=== PATIENT | male | born 1960 | race Caucasian/White ===

== ENCOUNTER 2017-10-10 08:41 | Emergency (ER) | payer OTHER ==
[~2017-10-10] VITALS: Ht 170.2 cm; Wt 78.0 kg
[~2017-10-10 08:41] MED LIST: ALLOPURINOL300 M1 PO; COLACE100 M1 PO; COUMADIN5 M2 PO; FLEXERIL10 MG PO; IRON SUPPLEMEN325 MG PO; K-DUR 20MEQ TA20 MEQ PO; LASIX20 MG PO; MIRALAX17 G1 PO; MOXIFLOXACIN H400 M1 PO; NORCO 325 MG-51 TAB PO; OTEZLA30 MG PO; PERCOCET 325 MG1 TA2 PO; PERCOCET 5-3251 EACH PO; PREDNISONE5 MG PO; PRINIVIL20 M1 PO
[2017-10-10] MEDS ORDERED: FENOFIBRATE145 M1 PO (09:06)
--- NOTE | 2017-10-10 09:09 | ED GI/GU/ABDOMINAL COMPLAINT ---
History of Present Illness General Chief Complaint: Abdominal Pain/Flank Pain Stated Complaint: ABD PAIN Source: patient Exam Limitations: no limitations Vital Signs & Intake/Output Vital Signs & Intake/Output Vital Signs Date Time Temp Pulse Resp B/P B/P Pulse O2 O2 Flow FiO2 Mean Ox Delivery Rate 10/10 1438 84 18 160/84 96 Room Air Room Air 10/10 1315 98.0 72 18 148/92 05/ 1312 98.0 72 18 148/92 97 Room Air 10/10 1115 98.7 70 20 168/90 05/ 1115 98.7 70 20 168/90 96 Room Air 10/10 1034 98.4 74 20 160/90 96 Room Air 10/10 0915 98.0 85 20 170/100 05/ 0913 98.0 85 20 170/100 97 Room Air 10/10 0844 98.2 90 15 172/112 97 Room Air Room Air Allergies Coded Allergies: No Known Allergies (10/10/17) Reconcile Medications Allopurinol 300 MG TABLET 1 TAB PO DAILY GOUT (Reported) Fenofibrate Nanocrystallized (Fenofibrate) 145 MG TABLET 1 TAB PO DAILY TRIGLYCERIDES (Reported) Lisinopril (Prinivil) 20 MG TABLET 1 TAB PO DAILY BP (Reported) Omeprazole 40 MG CAPSULE.DR 1 CAP PO DAILY reflux Ondansetron (Zofran Odt) 4 MG TAB.RAPDIS 1 TAB SL TID NAUSEA Ondansetron (Zofran Odt) 4 MG TAB.RAPDIS 1 TAB SL TID nausea Promethazine HCl 25 MG TABLET 1 TAB PO Q6P PRN NAUSEA Promethazine HCl 25 MG TABLET 1 TAB PO Q6P PRN nausea Triage Note: PT TO ED FOR C/C OF DIFFUSE ABD PAIN, NAUSEA, VOMITING AND DIARRHEA. HAS BEEN INTERMITTENT X MONTHS, BUT WORSENING OVER THE LAST 4 DAYS. PT IS A DAILY DRINKER 6-10 BEERS AND A COUPLE OF NIPS A DAY. LAST DRINK 0600. PT DENIES SHARRI BLOOD IN STOOL, BUT DID HAVE ONE EPISODE OF COFFEE GROUND EMESIS A COUPLE OF DAYS AGO. PT HYPERTENSIVE IN TRIAGE. Triage Nurses Notes Reviewed? yes Onset: Abrupt Duration: day(s):, constant, continues in ED Timing: recent history Quality/Severity: moderate Location: generalized abdomen Radiation: no radiation Prior Abdominal Problems: none HPI: 56-year-old male with a history of heavy alcohol use daily for the last 40 years comes into the emergency room with complaints of nausea vomiting general abdominal pain. He reports that over last 2 years his abdomen has become very enlarged. He denies any fever. Denies any blood in his stool. He has chronic loose bowel movements. He reports that for the past 4 days he has not really keep anything down. He drinks about 6-10 beers a night. He reports he had a beer this morning before coming in. Denies any history of liver disease that he is aware of. Denies any prior abdominal surgeries. (Kaveh Sandoval) Past History Travel History Traveled to [place] past 21 day No Medical History Any Pertinent Medical History? see below for history Neurological: NONE EENT: NONE Cardiovascular: hypertension Respiratory: ASP PNA Gastrointestinal: SLOW GASTRIC EMPTYING Hepatic: NONE Renal: NONE Musculoskeletal: gout, osteoarthritis, psoariatic arthritis Psychiatric: NONE Endocrine: NONE Blood Disorders: NONE Cancer(s): NONE REINFORCING STEEL PLACER/Reproductive: NONE History of MRSA: No History of VRE: No History of CDIFF: No Surgical History Surgical History: RIGHT HIP SX LEFT HIP REPLACEMENT Psychosocial History Who do you live with Spouse What is your primary language Eritrean Tobacco Use: Quit >30 days ago ETOH Use: alcoholic Illicit Drug Use: marijuana Family History Family History, If Any: FATHER Relation not specified for: FH: hypertension Hx Contributory? No (Kaveh Sandoval) Review of Systems Review of Systems Constitutional: Reports: no symptoms. EENTM: Reports: no symptoms. Respiratory: Reports: no symptoms. Cardiovascular: Reports: no symptoms. GI: Reports: see HPI. Genitourinary: Reports: no symptoms. Musculoskeletal: Reports: no symptoms. Skin: Reports: no symptoms. Neurological/Psychological: Reports: no symptoms. Hematologic/Endocrine: Reports: no symptoms. Immunologic/Allergic: Reports: no symptoms. All Other Systems: Reviewed and Negative (Kaveh Sandoval) Physical Exam Physical Exam General Appearance: alert, awake Head: atraumatic Eyes: Bilateral: normal appearance. Ears, Nose, Throat, Mouth: hearing grossly normal, moist mucous membrane Neck: normal inspection Respiratory: normal breath sounds, no respiratory distress Cardiovascular: regular rate/rhythm Gastrointestinal: soft, distention, hepatomegaly Back: normal inspection Extremities: normal range of motion Neurologic/Psych: awake, alert, oriented x 3 Skin: intact Core Measures ACS in differential dx? Yes Sepsis Present: No Sepsis Focused Exam Completed? No (Clyde RAMOS,Kaveh) Progress Differential Diagnosis: appendicitis, bowel obstruction, colon cancer, cholecystitis, epididymitis, pancreatitis, Liver cirrhosis, alcoholic hepatitis, Plan of Care: Orders Procedure Date/time Status Clear Liquid Diet 10/10 D Active LACTIC ACID 10/10 1200 Complete ETHANOL 10/10 09 Complete CIWA 10/10 901 Active URINALYSIS 10/10 899 Complete TROPONIN LEVEL 10/10 899 Complete PARTIAL THROMBOPLASTIN TIME 10/10 899 Complete PROTHROMBIN TIME 10/10 899 Complete LIPASE 10/10 899 Complete LACTIC ACID 10/10 899 Complete COMPREHENSIVE METABOLIC PANEL 10/10 899 Complete CBC WITHOUT DIFFERENTIAL 10/10 899 Complete AMYLASE 10/10 899 Complete EKG 10/10 899 Active Laboratory Tests 10/10/17 1215: Lactic Acid 3.0 H 10/10/17 1022: Urine Color YEL, Urine Clarity CLEAR, Urine pH 6.0, Ur Specific [place] <= 1.005 , Urine Protein NEG, Urine Ketones NEG, Urine Nitrite NEG, Urine Bilirubin NEG, Urine Urobilinogen 0.2, Ur Leukocyte Esterase NEG, Ur Microscopic EXAM NOT REQUIRED, Urine Hemoglobin NEG, Urine Glucose NEG 10/10/17 0916: Anion Gap 18 H, Estimated GFR > 60, BUN/Creatinine Ratio 17.5, Glucose 146 H, Lactic Acid 3.4 H, Calcium 8.3 L, Total Bilirubin 1.1, AST 136 H, ALT 48, Alkaline Phosphatase 53, Troponin I < 0.01, Total Protein 7.4, Albumin 4.1, Globulin 3.3, Albumin/Globulin Ratio 1.2, Amylase 44, Lipase 202, PT 13.2 H, INR 1.21 H, APTT 31, CBC w Diff NO MAN DIFF REQ, RBC 4.26 L, MCV 96.1 H, MCH 33.3 H, MCHC 34.6, RDW 12.0, MPV 6.8 L, Gran % 53.4, Lymphocytes % 31.3, Monocytes % 14.6 H, Eosinophils % 0.3, Basophils % 0.4, Absolute Granulocytes 3.0, Absolute Lymphocytes 1.8, Absolute Monocytes 0.8 H, Absolute Eosinophils 0 , Absolute Basophils 0, Serum Alcohol 232.0 10/10/17 0901: Serum Alcohol Cancelled Diagnostic Imaging: Viewed by Me: CT Scan. Discussed w/RAD: CT Scan. Radiology Impression: PATIENT: LARA RODRIGUEZ PRESENT AGE: 56 PATIENT ACCOUNT NO: [id number] : 62 LOCATION: [facility] ORDERING PHYSICIAN: Kaveh RAMOS SERVICE DATE: 10/10/17 EXAM TYPE : CAT - CT ABD & PELVIS W IV CONTRAST EXAMINATION: CT ABDOMEN AND PELVIS WITH CONTRAST CLINICAL INFORMATION: Hepatomegaly. COMPARISON: CT chest 06/09/2015. TECHNIQUE: Multidetector volumetric imaging was performed of the abdomen and pelvis following IV administration of 95 mL of Optiray 320 intravenous contrast. Sagittal and coronal reformatted images were obtained on the technologist's workstation. DLP: 384.70 mGy-cm FINDINGS: LUNG BASES: The visualized lung bases are unremarkable. No suspicious lung masses are seen. No pleural effusions are present. A hiatal hernia is present. LIVER, GALLBLADDER, AND BILIARY TREE: The liver is enlarged measuring at least 21 cm in greatest length. I suspect that there is probably fatty infiltration of the liver although the CT scans were done only with contrast. No focal hepatic lesion or biliary ductal dilatation is present. The gallbladder is unremarkable with no evidence of radiopaque gallstones, gallbladder wall thickening, or obvious pericholecystic inflammatory changes. PANCREAS: Unremarkable. SPLEEN: Unremarkable. ADRENAL GLANDS: Unremarkable. KIDNEYS AND URETERS: The kidneys are normal in size, shape, and attenuation. No hydronephrosis, hydroureter, or calculi seen. No perinephric stranding. BLADDER: Unremarkable. GASTROINTESTINAL TRACT: The small and large bowel are unremarkable aside from some mild colonic diverticulosis. There is no evidence of diverticulitis. The appendix is unremarkable. ABDOMINAL WALL: No significant hernia is appreciated. LYMPH NODES: Normal. VASCULAR: Unremarkable. PELVIC VISCERA: The prostate is not enlarged. Prostatic calcification is present. The seminal vesicles appear normal. No free fluid is seen. OSSEOUS STRUCTURES: Left total hip prosthesis is present along with scoliosis convex to the right and degenerative changes in the lower thoracic spine with mild anterior wedging at T11. IMPRESSION: 1. Enlarged, probable fatty liver. 2. Incidental note made of colonic diverticulosis and scoliosis with mild compression fracture of T11 and left hip replacement. DICTATED BY: Scott Ambriz MD DATE/TIME DICTATED:10/10/171046 SINGE WINDER:VESTA DATE/TIME TRANSCRIBED:10/10/171046 CONFIDENTIAL, DO NOT COPY WITHOUT APPROPRIATE AUTHORIZATION. <Electronically signed in Other Vendor System> SIGNED BY: Scott Ambriz MD 10/10/17 1128 Initial ED EKG: normal sinus rhythm, rate (85) (Clyde RAMOS,Kaveh) Departure Departure Disposition: HOME OR SELF CARE Condition: Stable Clinical Impression Primary Impression: Abdominal pain with vomiting Referrals: Gretchen MOYER,Robert RAMOS,Katherine Bravo (PCP/Family) Additional Instructions: Take Zofran and promethazine as prescribed. Follow-up with primary care doctor. Stop drinking alcohol. Return if any concerns worsening symptoms. Please go over all results of today's visit with your primary care doctor. Contact your primary care doctor to let them know you were here in the emergency room. There may be nonspecific findings which may not be related to your visit today here in the emergency room but may require further evaluation and chronic monitoring by your primary care doctor. If you had a laceration today the chance of foreign body always remains. You should follow-up with your primary care doctor for recheck in 3-5 days for a wound check. If you had an x-ray done there is a chance that a fracture could have been missed on initial read and you should follow-up with your primary care doctor for repeat x-rays if symptoms persist. If your blood pressure was elevated here in the emergency room please have rechecked by [facility] primary care doctor within the next 48. If you were prescribed a narcotic here in the emergency room or any type of controlled substances you're not allowed to drive while taking this medication or operate any type of heavy machinery. Narcotics can make you feel lightheaded dizziness nausea and can cause constipation. You may need to lease picker a stool softener. Thank you for choosing [facility] emergency room. Please return to the emergency room immediately if you have any other concerns worsening of symptoms. Departure Forms: Customer Survey General Discharge Information Prescriptions: Current Visit Scripts Ondansetron (Zofran Odt) 1 TAB SL TID #10 TAB Promethazine HCl 1 TAB PO Q6P PRN NAUSEA #30 TAB Promethazine HCl 1 TAB PO Q6P PRN nausea #30 TAB Ondansetron (Zofran Odt) 1 TAB SL TID #10 TAB Omeprazole 1 CAP PO DAILY #30 CAP Comments 10/10/2017 4:03:47 PM Patient clinically looks well. He is tolerating oral liquids. He is clinically sober. He has his driving him home. He was told to stop drinking alcohol. Concerns for early liver cirrhosis. Patient was seen and evaluated by Dr. David. Repeat lactic acid is improved. No acute source for nausea. (Clyde RAMOS,Kaveh) PA/COSMETIC MAKER Co-Sign Statement Statement: ED Attending supervision documentation- [] I saw and evaluated the patient. I have also reviewed all the pertinent lab results and diagnostic results. I agree with the findings and the plan of care as documented in the PA's/COSMETIC MAKER's documentation. [X] I have reviewed the ED Record and agree with the PA's/COSMETIC MAKER's documentation. [] Additions or exceptions (if any) to the PAs/COSMETIC MAKER's note and plan are summarized below: [] (Frankie NOYOLA,Aldair Damian)
[2017-10-10 09:41] LABS: PT 13.2 SEC (9.4-12.5); PTT 31 SEC (25-37)
[2017-10-10 09:49] LABS: ABSOLUTE BASOPHIL COUNT 0 /CUMM (0.0-0.2); ABSOLUTE EOSINOPHIL COUNT 0 /CUMM (0.0-0.7); ABSOLUTE LYMPH COUNT 1.8 /CUMM (1.2-3.4); ABSOLUTE MONOCYTE COUNT 0.8 /CUMM (0.10-0.60); BASOPHIL % 0.4 % (0.0-2.0); EOSINOPHIL % 0.3 % (0-5); GRANULOCYTE % 53.4 % (42.2-75.2); HEMATOCRIT 40.9 % (42-52); MEAN CORPUSCULAR HGB 33.3 PG (27.0-31.0); MEAN CORPUSCULAR HGB CONC 34.6 G/DL (33.0-37.0); MEAN CORPUSCULAR VOLUME 96.1 FL (80.0-94.0); MEAN PLATELET VOLUME 6.8 FL (7.4-10.4); PLATELET COUNT 316 /CUMM (130-400); RED BLOOD CELL CT 4.26 /CUMM (4.70-6.10); WHITE BLOOD CELL COUNT 5.7 /CUMM (4.8-10.8)
--- NOTE | 2017-10-10 11:28 | CT SCAN REPORT ---
EXAMINATION: CT ABDOMEN AND PELVIS WITH CONTRAST CLINICAL INFORMATION: Hepatomegaly. COMPARISON: CT chest 06/09/2015. TECHNIQUE: Multidetector volumetric imaging was performed of the abdomen and pelvis following IV administration of 95 mL of Optiray 320 intravenous contrast. Sagittal and coronal reformatted images were obtained on the technologist's workstation. DLP: 384.70 mGy-cm FINDINGS: LUNG BASES: The visualized lung bases are unremarkable. No suspicious lung masses are seen. No pleural effusions are present. A hiatal hernia is present. LIVER, GALLBLADDER, AND BILIARY TREE: The liver is enlarged measuring at least 21 cm in greatest length. I suspect that there is probably fatty infiltration of the liver although the CT scans were done only with contrast. No focal hepatic lesion or biliary ductal dilatation is present. The gallbladder is unremarkable with no evidence of radiopaque gallstones, gallbladder wall thickening, or obvious pericholecystic inflammatory changes. PANCREAS: Unremarkable. SPLEEN: Unremarkable. ADRENAL GLANDS: Unremarkable. KIDNEYS AND URETERS: The kidneys are normal in size, shape, and attenuation. No hydronephrosis, hydroureter, or calculi seen. No perinephric stranding. BLADDER: Unremarkable. GASTROINTESTINAL TRACT: The small and large bowel are unremarkable aside from some mild colonic diverticulosis. There is no evidence of diverticulitis. The appendix is unremarkable. ABDOMINAL WALL: No significant hernia is appreciated. LYMPH NODES: Normal. VASCULAR: Unremarkable. PELVIC VISCERA: The prostate is not enlarged. Prostatic calcification is present. The seminal vesicles appear normal. No free fluid is seen. OSSEOUS STRUCTURES: Left total hip prosthesis is present along with scoliosis convex to the right and degenerative changes in the lower thoracic spine with mild anterior wedging at T11. IMPRESSION: 1. Enlarged, probable fatty liver. 2. Incidental note made of colonic diverticulosis and scoliosis with mild compression fracture of T11 and left hip replacement.
[2017-10-10] MEDS ORDERED: ZOFRAN ODT4 M1 SL ×2 (14:17→16:08)
[2017-10-10] MEDS ORDERED: PROMETHAZINE HC25 M3 PO ×2 (14:17→16:08)
[2017-10-10 14:38] VITALS: BP 160/84
[2017-10-10] MEDS ORDERED: OMEPRAZOLE40 M1 PO (16:08)
== END 2017-10-10 14:48 ==
LOC: ERH 08:41
PROVIDERS: Physician Assistant Medical
DX: R10.84 Generalized abdominal pain (principal); R11.2 Nausea with vomiting, unspecified; I10 Essential (primary) hypertension; Z87.891 Personal history of nicotine dependence
CPT/HCPCS: 74177; 81003; 93005; 93010; 96361; 96374; 96375; G0480; J2405; J2550